=== PATIENT | female | born 1985 | race Caucasian/White ===

== ENCOUNTER 2020-05-26 12:14 | Emergency (ER) | payer OTHER ==
[~2020-05-26] VITALS: Ht 162.6 cm; Wt 100.0 kg
[2020-05-26 12:18] VITALS: BP 111/71
[2020-05-26 13:44] LABS: COVID AG,FIA SOURCE NASOPHARYNGEAL
== END 2020-05-26 13:40 | disposition home or self-care (01) ==
LOC: EMS 12:20
DX: Z20.828 Contact with and (suspected) exposure to other viral communicable diseases (principal); Z90.89 Acquired absence of other organs; Z88.1 Allergy status to other antibiotic agents; Z88.8 Allergy status to other drugs, medicaments and biological substances
CPT/HCPCS: 87426

== ENCOUNTER 2020-05-28 10:43 | Day surgery (SDC) | payer OTHER ==
[~2020-05-28] VITALS: Ht 162.6 cm; Wt 101.4 kg
[~2020-05-28 10:43] MED LIST: SODIUM CHLORIDE 0.9% 1,000 ML ONE
[2020-05-28] MEDS ORDERED: SODIUM CHLORIDE 0.9% 1,000 ML IV ONE (11:00)
== END 2020-05-28 12:30 | disposition home or self-care (01) ==
LOC: SURGERY 10:43
PROVIDERS: ATTEND Internal Medicine Gastroenterology
DX: K57.32 Diverticulitis of large intestine without perforation or abscess without bleeding (principal); Z53.8 Procedure and treatment not carried out for other reasons; Z88.8 Allergy status to other drugs, medicaments and biological substances; Z90.49 Acquired absence of other specified parts of digestive tract; Z98.890 Other specified postprocedural states
CPT/HCPCS: 84703; J7030

== ENCOUNTER 2020-06-11 09:00 | Day surgery (SDC) | payer OTHER ==
[~2020-06-11] VITALS: Ht 162.6 cm; Wt 99.1 kg
[2020-06-11 09:30] LABS: COVID AG,FIA SOURCE NASOPHARYNGEAL
[2020-06-11] MEDS ORDERED: SODIUM CHLORIDE 0.9% 1,000 ML ONE (09:54)
[2020-06-11] MEDS ORDERED: SODIUM CHLORIDE 0.9% 1,000 ML IV ONE (10:00)
== END 2020-06-11 13:50 | disposition home or self-care (01) ==
LOC: SURGERY 09:00
PROVIDERS: ATTEND Internal Medicine Gastroenterology
DX: K57.30 Diverticulosis of large intestine without perforation or abscess without bleeding (principal); Z20.828 Contact with and (suspected) exposure to other viral communicable diseases; Z79.899 Other long term (current) drug therapy; Z98.890 Other specified postprocedural states; Z90.49 Acquired absence of other specified parts of digestive tract
CPT/HCPCS: 45378; 84703; 87426; C9803; J7030